=== PATIENT | female | born 1960 | race Caucasian/White ===

== ENCOUNTER → 2017-04-11 | Outpatient (CLI) | payer BC ==
[~2017-04-11] MED LIST: PARO1TAB27 PO
--- NOTE | 2017-04-11 16:29 | MAMMOGRAPHY REPORT ---
BILATERAL DIGITAL SCREENING MAMMOGRAM TOMOSYNTHESIS WITH CAD: 04/11/2017 TECHNIQUE: Breast tomosynthesis in addition to standard 2D mammography was performed. Current study was also evaluated with a Computer Aided Detection (CAD) system. COMPARISON: Comparison is made to exams dated: 04/05/2016 mammogram, 03/09/2015 mammogram, 03/05/2014 mammogram, 02/26/2013 mammogram, 02/21/2012 mammogram, and 02/16/2011 mammogram - [facility]. BREAST COMPOSITION: There are scattered areas of fibroglandular density in both breasts. FINDINGS: There is a possible lobulated 9 mm mass seen within the left lateral breast on the cc vie w, best seen on the tomosynthesis images, possibly projecting superiorly on the MLO view, for which ultrasound and possible additional spot compression tomosynthesis views are recommended for further evaluation. The remainder of both breasts are stable compared to prior exams, without suspicious masses, calcifi cations, or areas of architectural distortion noted. IMPRESSION: ACR BI-RADS CATEGORY 0: INCOMPLETE EVALUATION: NEED ADDITIONAL IMAGING EVALUATION Possible left lateral breast mass, for which additional imaging evaluation is recommended. The shaila ent will be called to schedule an appointment. Approximately 10% of breast cancers are not detected with mammography. A negative mammographic repor t should not delay biopsy if a clinically suggestive mass is present. Sofi Arauz M.D. /:04/11/2017 16:05:04 Neuropsychologist: Supriya KENNEY(Min)(M), [facility] letter sent: Addl Imaging 0 BI-RADS Code: ACR BI-RADS Category 0: Incomplete Evaluation: Need Additional Imaging Evaluation
== END | disposition home or self-care (01) ==
LOC: C.MAMM 07:18
PROVIDERS: ATTEND Nurse Practitioner Family
DX: Z12.31 Encounter for screening mammogram for malignant neoplasm of breast (principal); N63 Unspecified lump in breast

== ENCOUNTER → 2017-04-18 | Outpatient (CLI) | payer BC ==
--- NOTE | 2017-04-18 17:14 | MAMMOGRAPHY REPORT ---
ULTRASOUND OF LEFT BREAST: 04/18/2017 CLINICAL HISTORY: Callback from screening mammogram for left breast mass. COMPARISON: Comparison is made to exams dated: 04/11/2017 mammogram, 04/05/2016 mammogram, 03/09/2015 m ammogram, 03/05/2014 mammogram, 02/26/2013 mammogram, and 02/21/2012 mammogram - [facility]. TECHNIQUE: Real-time targeted ultrasound of the left breast was performed. FINDINGS: Real time, high resolution targeted ultrasound was performed of the left upper outer quadr ant in the region of the mammographic 9 mm mass seen on the recent screening mammogram. In the left breast at 2:00, 4 cm from the nipple, there is a lobulated anechoic mass with multiple thin internal septations, measuring 7 x 5 x 6 mm. This corresponds with the mammographic mass and is probably mildred gn and likely represents a cyst cluster. Recommend short interval follow-up in 6 months to confirm s tability. IMPRESSION: ACR-BI-RADS CATEGORY 3: PROBABLY BENIGN - FOLLOW-UP RECOMMENDED Lobulated 7 mm mass in the left breast at 2:00 on ultrasound, which corresponds with the mammographic mass and is probably benign and likely represents a cyst cluster. Recommend follow-up diagnostic to mosynthesis mammograms and ultrasound of the left breast in 6 months to reevaluate. The patient was verbally notified of the results. Sofi Arauz M.D. /:04/18/2017 14:47:04 Public Relations Studies Director: Sofi Arauz MD, [facility] letter sent: Follow Up Recommended 3 BI-RADS Code: ACR-BI-RADS Category 3: Probably Benign
== END | disposition home or self-care (01) ==
LOC: C.MAMM 13:33
PROVIDERS: ATTEND Nurse Practitioner Family
DX: N63 Unspecified lump in breast (principal)

== ENCOUNTER → 2017-05-03 | Outpatient (CLI) | payer BC ==
--- NOTE | 2017-05-03 10:01 | DIAGNOSTIC IMAGING REPORT ---
KUB HISTORY: Constipation. COMPARISON: Abdominal ultrasound 03/10/2015. FINDINGS: The bowel gas pattern is unremarkable. There are no dilated loops of small bowel to suggest an obstruction. No renal calculi. No ureteral calculi. Calcifications in the deep pelvis likely represent phleboliths. Large amount well-formed stool seen throughout the colon. No pneumoperitoneum or pneumatosis. IMPRESSION: Large amount of well-formed stool seen throughout the colon. Electronically signed by: Johnson Patricio M.D. 05/03/2017 9:59 AM Dictated Date/Time: 05/03/2017 9:58 AM
== END | disposition home or self-care (01) ==
LOC: C.RAD 09:34
PROVIDERS: ATTEND Nurse Practitioner Family
DX: K59.00 Constipation, unspecified (principal)

== ENCOUNTER → 2017-08-17 | Outpatient (CLI) | payer BC | END | disposition home or self-care (01) | LOC: C.PAPS 10:41 | PROVIDERS: ATTEND Obstetrics & Gynecology | DX: Z01.419 Encounter for gynecological examination (general) (routine) without abnormal findings (principal) ==

== ENCOUNTER → 2017-10-19 | Outpatient (CLI) | payer BC ==
--- NOTE | 2017-10-22 07:49 | MAMMOGRAPHY REPORT ---
UNILATERAL LEFT DIGITAL DIAGNOSTIC MAMMOGRAM TOMOSYNTHESIS WITH CAD AND TARGETED LEFT ULTRASOUND: 10/19/2017 CLINICAL HISTORY: Short interval follow-up of left breast mass. TECHNIQUE: Breast tomosynthesis in addition to standard 2D mammography was performed. Current study was also evaluated with a Computer Aided Detection (CAD) system. Left CC and MLO 2-D and tomosynthes is images were obtained. COMPARISON: Comparison is made to exams dated: 04/18/2017 ultrasound, 04/11/2017 mammogram, 04/05/2016 m ammogram, 03/09/2015 mammogram, 03/05/2014 mammogram, and 02/26/2013 mammogram - [facility]. BREAST COMPOSITION: There are scattered areas of fibroglandular density in the left breast. FINDINGS: Again noted is a low density lobulated 7 mm mass is seen within the left upper outer quadr ant, best seen on the cc tomosynthesis images. The mass does not appear significantly changed compar ed to the March 2017 exam. The remainder of the left breast is stable compared to prior exams, without suspicious masses, calcifications, or areas of architectural distortion noted. An oval circumscribe d benign-appearing 7 mm mass within the left lower inner quadrant is stable dating back to at least t 2014 exam. Targeted ultrasound was performed of the left breast in the region of the previously seen left breast mass. In the left breast at 2:00, approximately 4 cm from the nipple, again noted is a lobulated ci rcumscribed anechoic mass with multiple thin internal septations. The mass measures 5 x 5 x 8 mm, an d does not appear significantly changed in size or appearance compared to the April 2017 exam where th e mass measured 7 x 5 x 6 mm. This corresponds with the stable mammographic mass and is benign and c ompatible with a cyst cluster. IMPRESSION: ACR BI-RADS CATEGORY 2: BENIGN, TARGETED ULTRASOUND ACR BI-RADS CATEGORY 2: BENIGN Lobulated 8 mm mass in the left 2:00 breast is stable compared to the April 2017 exam, and is benign a nd compatible with a cyst cluster. There is no mammographic or targeted sonographic evidence of marcellus gnancy. Return to annual mammogram screening schedule is recommended, due March 2018. The patient has been verbally notified of the results. Approximately 10% of breast cancers are not detected with mammography. A negative mammographic report should not delay biopsy if a clinically suggestive mass is present. Sofi Arauz M.D. ah/:10/19/2017 14:05:38 [employer] Supriya Patel [facility] letter sent: Normal 1/2 BI-RADS Code: ACR BI-RADS Category 2: Benign Ultrasound BI-RADS: ACR BI-RADS Category 2: Benign
== END | disposition home or self-care (01) ==
LOC: C.MAMM 13:43
PROVIDERS: ATTEND Nurse Practitioner Family
DX: N63.20 Unspecified lump in the left breast, unspecified quadrant (principal)